=== PATIENT | female | born 2000 | race Caucasian/White ===

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

== ENCOUNTER 2024-06-10 11:40 | Observation (INO) | payer OTHER, SELFPAY ==
[2024-06-10 11:58] VITALS: BMI 22.4
--- NOTE | 2024-06-10 11:59 | OBADM ---
This patient, Oral Palma, admitted to the OB room [facility] for observation. Patient/family oriented to hospital policies and general routines including ID bracelet, bed and alarms, visiting hours, pain management, procedures, bathroom and other care routines, personal items, smoking policy, room service/diet, and visiting hours. Patient/Family are encouraged to report perceived risks to care and to ask questions if they do not understand what they are told or what they should do.
[2024-06-10 12:22] LABS: Color Urine Yellow (Yellow)
[2024-06-10 12:23] LABS: Add Urine Microscopic? NO; Appearance Urine Clear (Clear); Bilirubin Urine Negative (Negative); Blood Urine Negative (Negative); Glucose Urine UA Negative (Negative); Ketones Urine Negative (Negative); Leukocyte Esterase Ur Negative LEU/UL (Negative); Nitrate Urine Negative (Negative); Protein Urine Negative (Negative); Specific Grav Ur 1.025 (1.001-1.035); Urobilinogen Urine 0.2 mg/dL (<2.0); pH Urine 7.5 (5.0-9.0)
[2024-06-10 12:41] LABS: OBXCEM ROM Plus Negative (Negative)
--- NOTE | 2024-06-10 13:03 | PC.NURSE ---
1249- Spoke with Dr. Day regarding admission for leaking, patient sees Dr. Miller with [facility]. Rom plus negative. UA sent and WNL. Orders for patient to be discharged to home with follow up with Dr. Miller to be seen this week.
--- NOTE | 2024-06-19 12:00 | P.PNOB_ITS ---
OB - Triage/Final Diagnosis Visit Information Comments/Additional reasons for admission: I have assessed the risk for this patient, Oral Patricia Louie, and determined that she would benefit from observation care. Evaluation Laboratory results: Laboratory Tests 06/10/24 06/10/24 12:14 12:39 Urine Color Yellow Urine Appearance Clear Urine pH 7.5 Ur Specific [place] 1.025 Urine Protein Negative Urine Glucose (UA) Negative Urine Ketones Negative Ur Blood (Man) Negative Urine Nitrate Negative Urine Bilirubin Negative Urine Urobilinogen 0.2 Leukocyte Esterase Rfl Negative Membranes Rupture Rom plus negative Final Diagnosis (1) False labor: Code(s): O47.9 - False labor, unspecified Status: Acute
== END 2024-06-10 12:56 | disposition home or self-care (01) ==
PROVIDERS: Admitting Provider Obstetrics & Gynecology; PCP Physician Assistant Medical; Visit Provider Obstetrics & Gynecology
DX: O42.90 Premature rupture of membranes, unspecified as to length of time between rupture and onset of labor, unspecified weeks of gestation (principal)
CPT/HCPCS: 81003; 84112; G0378; G0379